=== PATIENT | male | born 1990 | race African-American/Black ===

== ENCOUNTER 2020-07-30 21:31 | Emergency (ER) | payer SELFPAY ==
[~2020-07-30] VITALS: Ht 180.3 cm; Wt 77.1 kg
--- NOTE | 2020-07-30 21:48 | Emergency Room Report ---
History of Present Illness General Chief Complaint: asthma Present Illness HPI Patient is a 30-year-old male presents for increased difficulty with breathing. Patient had recent emergency department visit at [facility] and was started on prednisone. He had been taking 10 mg daily. Patient reports of increased nonproductive cough. Patient denies any leg pain or swelling. Reports having some tightness to his chest. Had taken breathing treatment immediately prior to arrival at the hospital. Allergies: Coded Allergies: No Known Allergies (Unverified , 07/30/20) COVID-19 Screening Contact w/high risk pt: No Patient History Past Medical History: see triage record Reviewed Nursing Documentation: PMH: Agreed; PSxH: Agreed Review of Systems All Other Systems: negative except mentioned in HPI Physical Exam Sp02 EP Interpretation: reviewed, normal General Appearance: normal inspection, well appearing, no apparent distress, alert, GCS 15 Head: atraumatic ENT: normal ENT inspection, hearing grossly normal, normal voice Neck: normal inspection, full range of motion, supple, no bony tend Respiratory: normal inspection, no respiratory distress, no retraction, wheezing, other - Air movement normal Cardiovascular #1: regular rate, rhythm, no edema Gastrointestinal: normal inspection, normal bowel sounds, non tender, soft, no guarding, no hernia Genitourinary: no CVA tenderness Musculoskeletal: normal inspection, back normal, normal range of motion Neurologic: alert, responsive, speech normal, normal inspection Psychiatric: normal inspection, judgement/insight normal, mood/affect normal Medical Decision Making ER Course Patient presented for difficulty with breathing. Differential diagnosis include was not limited to pneumonia, coronavirus infection, bronchitis, reactive airway disease among others. Patient has a benign exam and does not appear to require any imaging or laboratory testing at this time. Angel Alvarado MD Jul 30, 2020 21:48
[2020-07-30 21:50] VITALS: BP 140/78
--- NOTE | 2020-07-30 21:50 | NUR ---
ED Nurse Note: Pt placed in RM 04. Pt walked into ED from home c/o asthma exacerbation onset for 1 week. Pt states he was seen in [facility] ED and was given breathing treatment, albuterol and discharged with prednisone 10mg daily. Pt reports history of astham and smoking marijuana. Pt is awake alert, oriented x4, breathing even and unlabored. vital signs stable in traige.
--- NOTE | 2020-07-30 21:53 | NUR ---
ED Nurse Note: technical writing lead/mgr at bedside
--- NOTE | 2020-07-30 22:09 | Diagnostic Imaging Report ---
EXAM: XR Chest, 1 View CLINICAL HISTORY: SOB TECHNIQUE: Frontal view of the chest. COMPARISON: No relevant prior studies available. FINDINGS: Lungs: No consolidation. Pleural space: No pleural effusion. No pneumothorax. Heart: Unremarkable. No cardiomegaly. IMPRESSION: No acute cardiopulmonary abnormality.
[2020-07-30] MEDS ORDERED: ADULT WAL-100 MG/5 M ORAL (22:10)
[2020-07-30] MEDS ORDERED: VITAMIN D325 MC1 PO (22:10)
[2020-07-30] MEDS ORDERED: PREDNISONE20 MG ORAL (22:10)
[2020-07-30 22:20] VITALS: BP 138/70
--- NOTE | 2020-07-30 22:20 | NUR ---
ER DISCHARGE NOTE: Patient is cleared to be discharged per ERMD, pt is aox4, on room air, with stable vital signs. pt was given dc paperwork, copy of xray and prescription instructions, pt was able to verbalize understanding, pt id band removed without complications. pt is able to ambulate with steady gait. pt took all belongings.
== END 2020-07-30 22:20 | disposition home or self-care (01) ==
LOC: EMR 21:50
DX: R06.00 Dyspnea, unspecified (principal); R05 Cough
CPT/HCPCS: 71045; 93005; 99283; J7512